=== PATIENT | male | born 2005 | race Caucasian/White ===

== ENCOUNTER 2024-06-10 17:46 | Emergency (ER) | payer BC ==
[~2024-06-10] VITALS: Ht 177.8 cm; Wt 63.0 kg
[2024-06-10 18:44] LABS: BILIRUBIN Negative (Negative); BLOOD Negative (Negative); CLARITY Cloudy (Clear); COLOR Yellow (Yellow); GLUCOSE Negative (Negative); KETONE Negative (Negative); LEUKO ESTERASE Negative (Negative); NITRITE Negative (Negative); PH 6.5 (4.5-8.0); SPECIFIC GRAVITY 1.015 (1.001-1.030)
[2024-06-10 18:51] LABS: EPITHELIAL CELLS 0-2; WBC 0-2 wbc/hpf (0-5)
== END 2024-06-10 19:07 | disposition home or self-care (01) ==
LOC: ED 17:46
PROVIDERS: Nurse Practitioner Family
DX: S39.011A Strain of muscle, fascia and tendon of abdomen, initial encounter (principal); N50.811 Right testicular pain; R22.9 Localized swelling, mass and lump, unspecified; X58.XXXA Exposure to other specified factors, initial encounter; Y93.89 Activity, other specified; Y92.89 Other specified places as the place of occurrence of the external cause; Y99.8 Other external cause status

== ENCOUNTER 2024-08-29 16:03 | Emergency (ER) | payer BC ==
[~2024-08-29] VITALS: Ht 177.8 cm; Wt 63.5 kg
[2024-08-29] MEDS ORDERED: Lidocaine Hydrochloride 2% 10 ML AMP SC ONE (16:35)
[2024-08-29] MEDS ORDERED: Tdap Vaccine 0.5 ML SYR (Adult Vaccine) IM ONE (16:35)
== END 2024-08-29 17:07 | disposition home or self-care (01) ==
LOC: ED 16:03
DX: S61.011A Laceration without foreign body of right thumb without damage to nail, initial encounter (principal); W26.8XXA Contact with other sharp object(s), not elsewhere classified, initial encounter; Y93.89 Activity, other specified; Y92.89 Other specified places as the place of occurrence of the external cause; Y99.8 Other external cause status